=== PATIENT | female | born 1935 | race Caucasian/White ===

== ENCOUNTER 2020-12-25 23:41 | Emergency (ER) | payer MEDICAID ==
[~2020-12-25] VITALS: Ht 152.4 cm; Wt 76.7 kg
[2020-12-25] MEDS ORDERED: VANCOMYCIN 1 GM VIAL ONE (23:51)
[2020-12-25] MEDS ORDERED: PIPERACILLIN /TAZOBACTAM 3.375 G VIAL IV ONE (23:51)
[2020-12-26] MEDS ORDERED: PIPERACILLIN /TAZOBACTAM 3.375 G in IV D5W 50 ML IV ONE
[2020-12-26] MEDS ORDERED: VANCOMYCIN 1 GM in IV D5W 250 ML IV ONE
[2020-12-26 00:20] LABS: BASOPHILS % (AUTO) 0.3 % (0.0-2.0); HEMATOCRIT 41 % (33-45); HEMOGLOBIN 13.6 g/dL (11.5-14.8); LYMPHOCYTES # (AUTO) 2.8 /CMM (0.8-4.8); LYMPHOCYTES % (AUTO) 19.6 % (20.0-44.0); MEAN CORPUSCULAR HGB CONC 33 g/dl (31.0-36.0); MEAN CORPUSCULAR VOLUME 93 fL (82-100); MONOCYTES # (AUTO) 0.8 /CMM (0.1-1.30); MONOCYTES % (AUTO) 5.5 % (2.0-12.0); NEUTROPHILS # (AUTO) 10.5 /CMM (1.8-8.9); NEUTROPHILS % (AUTO) 73.6 % (43.0-81.0); PLATELET COUNT (AUTO) 203 /CMM (150-450); RED BLOOD CELL COUNT(AUTO) 4.42 MIL/uL (4.0-5.2); WHITE BLOOD COUNT (AUTO) 14.3 K/uL (4.3-11.0)
[2020-12-26 00:32] LABS: CALCIUM, SERUM 9.3 mg/dL (8.5-10.1); CARBON DIOXIDE 25 mmol/L (21-32); CHLORIDE 96 mmol/L (98-107); CREATININE 1.6 mg/dL (0.6-1.3); GLUCOSE 127 mg/dL (74-106); POTASSIUM 4.4 mmol/L (3.5-5.1); SODIUM SERUM 132 mmol/L (136-145); UREA NITROGEN, BLOOD 41 mg/dL (7-18)
[2020-12-26 00:38] LABS: ALANINE AMINOTRANSFERASE 27 U/L (12-78); ALBUMIN 3.1 g/dL (3.4-5.0); ALKALINE PHOSPHATASE 108 U/L (46-116); ASPARTATE AMINOTRANSFERASE 30 U/L (15-37); BILIRUBIN,DIRECT 0.2 mg/dL (0.0-0.2); BILIRUBIN,TOTAL 0.7 mg/dL (0.2-1.0); TOTAL PROTEIN, SERUM 8.2 g/dL (6.4-8.2)
[2020-12-26 01:10] LABS: BILIRUBIN,URINE NEGATIVE (NEGATIVE); COLOR,URINE YELLOW (YELLOW); LEUKOCYTE ESTERASE ,URINE LARGE (NEGATIVE); NITRITE, URINE NEGATIVE (NEGATIVE); PROTEIN,URINE TRACE mg/dl (NEGATIVE); UGLUCOSE NEGATIVE (NEGATIVE); UROBILINOGEN,URINE 0.2 EU/dL (0.2)
[2020-12-26 01:18] LABS: BACTERIA,URINE Many /HPF (None Seen); RBC,URINE 0-2 /HPF (0-2); SQUAMOUS EPITHELIAL CELL,UR Rare /HPF (None Seen)
[2020-12-26] MEDS ORDERED: METF-866 PO (06:32)
[2020-12-26] MEDS ORDERED: LOSA25TA27 PO (06:34)
[2020-12-26] MEDS ORDERED: ASPI-1169 PO (06:34)
[2020-12-26] MEDS ORDERED: FURO20TA4 PO (06:34)
[2020-12-26] MEDS ORDERED: GLIM1TAB18 PO (06:34)
[2020-12-26] MEDS ORDERED: ATOR20TA PO (06:34)
[2020-12-26 09:24] VITALS: BP 134/84
== END 2020-12-26 09:25 | disposition short-term general hospital (02) ==
LOC: ER 23:41
DX: A41.9 Sepsis, unspecified organism (principal); J18.9 Pneumonia, unspecified organism; R65.20 Severe sepsis without septic shock; N17.9 Acute kidney failure, unspecified; Z20.822 Contact with and (suspected) exposure to COVID-19; I10 Essential (primary) hypertension; E78.5 Hyperlipidemia, unspecified; E11.9 Type 2 diabetes mellitus without complications; I45.2 Bifascicular block
CPT/HCPCS: 36415 ×2; 71045; 80048; 80076; 81001; 83605 ×2; 83880; 84145; 84484; 85025; 85730; 87040 ×2; 87081; 87086; 87426; 93005; 96365; 96367; 99285; C9803; J2543; J3370; J7060; 87186-TC